=== PATIENT | female | born 1960 | race Caucasian/White ===

== ENCOUNTER → 2023-09-13 06:57 | Outpatient (REF) | payer OTHER, SELFPAY | LOC: RAD 06:57 | PROVIDERS: ATTENDING PHYSICIAN Family Medicine | DX: Z87.891 Personal history of nicotine dependence (principal) | CPT/HCPCS: 76770 ==

== ENCOUNTER → 2023-10-15 06:42 | Outpatient (REF) | payer OTHER, SELFPAY | LOC: RCS 06:42 | PROVIDERS: ATTENDING PHYSICIAN Specialist; FAMILY PHYSICIAN Family Medicine | DX: Z01.818 Encounter for other preprocedural examination (principal) | CPT/HCPCS: 93005 ==

== ENCOUNTER → 2024-03-12 07:51 | Outpatient (REF) | payer OTHER, SELFPAY | LOC: HWWDC 07:51 | PROVIDERS: ATTENDING PHYSICIAN Obstetrics & Gynecology; FAMILY PHYSICIAN Family Medicine | DX: Z12.31 Encounter for screening mammogram for malignant neoplasm of breast (principal) | CPT/HCPCS: 77063; 77067 ==